=== PATIENT | male | born 1985 | race Caucasian/White ===

== ENCOUNTER 2019-01-14 19:07 | Emergency (ER) | payer MEDICAID, OTHER ==
[~2019-01-14] VITALS: Ht 185.4 cm; Wt 77.1 kg
[~2019-01-14 19:07] MED LIST: ASPI81CH43 GT; FURO40TA PO; LISI2.5T47 PO; METO25TA62 PO; SPIR25TA88 PO
[2019-01-14 19:40] LABS: Basophils # (auto) 0.1 uL; Eosinophils # (auto) 0.1 uL; Eosinophils % (auto) 0.4 % (0.0-7.0); Mean Corpuscular Volume 88.9 fL (80.0-100.0); Monocytes % (auto) 11.7 % (0.0-12.0); Nucleated Red Blood Cells % 0.1 %
[2019-01-14 19:44] LABS: Basophils % (auto) 0.9 % (0.0-2.0); Hematocrit 53.3 % (41.0-53.0); Hemoglobin 17.2 g/dL (13.5-17.5); Lymphocytes % (auto) 25.8 % (10.0-50.0); Mean Corpuscular Hemoglobin 28.7 pg (28.0-32.0); Mean Corpuscular Hgb Conc. 32.3 g/dL (32.0-36.0); Monocytes # (auto) 1.8 uL; Neutrophils # (auto) 9.5 uL; Neutrophils % (auto) 61.2 % (37.0-80.0); Platelet Count (auto) 333 10^3/uL (140-450); Red Blood Cells 5.99 10^6/uL (4.5-5.90); Red Cell Distribution Width 15.5 % (11.8-14.3); White Blood Cell 15.5 10^3/uL (4.4-10.8)
[2019-01-14 19:57] LABS: Albumin 2.3 g/dL (3.4-5.0); Calcium 8.2 mg/dL (8.5-10.1); Magnesium 2.3 mg/dL (1.6-2.6); Potassium 4.3 mmol/L (3.5-5.1)
[2019-01-14 20:05] LABS: BUN/Creatinine Ratio 20.1; Bilirubin, Total 1.2 mg/dL (0.2-1.0); Total Protein 6.7 g/dL (6.4-8.2)
[2019-01-14] MEDS ORDERED: SODIUM CHLORIDE 0.9% 1,000 ML IV ONE (21:00)
[2019-01-14] MEDS ORDERED: IPRATROPIUM BROM 0.5 MG/2.5ML INH SOL NEB ONE (21:00)
[2019-01-14] MEDS ORDERED: cefTRIAXone 1GM/50ML D5W 50 ML IV ONE (21:00)
[2019-01-14] MEDS ORDERED: ALBUTEROL SULF 2.5 MG/0.5ML(0.5%) NEB SOLN NEB ONE (21:00)
[2019-01-14 21:29] LABS: INR 1.32 (0.9-1.15); Prothrombin Time 13.9 sec (9.27-12.13)
[2019-01-15] MEDS ORDERED: FUROSEMIDE 20 MG/2 ML VIAL IV ONE (00:15)
[2019-01-15] MEDS ORDERED: ONDANSETRON HCL 4 MG/2 ML VIAL IV ONE (00:15)
[2019-01-15] MEDS ORDERED: MORPHINE SULFATE 4 MG/ML SYR/VIAL IV ONE (00:15)
[2019-01-15 05:46] VITALS: BP 103/73
== END 2019-01-15 06:09 | disposition home or self-care (01) ==
LOC: ER 19:27
DX: J18.9 Pneumonia, unspecified organism (principal); I50.23 Acute on chronic systolic (congestive) heart failure; Z79.82 Long term (current) use of aspirin; Z79.899 Other long term (current) drug therapy
CPT/HCPCS: 36415; 71046; 80053; 83605; 83735; 83880; 84443; 84484; 85025; 85610; 85730; 87040; 93005; 94640; 96365; 96366; 96375; 99284; J0696; J2270; J2405; J7030; J7611; J7644

== ENCOUNTER 2019-01-26 12:48 | Inpatient (IN) | payer MEDICAID | END 2019-01-30 18:30 | disposition home or self-care (01) | LOC: TELE-WESTW 01-29 05:10 → ER 12:48 → TELE-WESTW 01-27 17:20 → TELE 19:34 | DX: I11.0 Hypertensive heart disease with heart failure (principal); I21.4 Non-ST elevation (NSTEMI) myocardial infarction; J18.9 Pneumonia, unspecified organism; E44.0 Moderate protein-calorie malnutrition; I27.20 Pulmonary hypertension, unspecified; I42.7 Cardiomyopathy due to drug and external agent; I50.43 Acute on chronic combined systolic (congestive) and diastolic (congestive) heart failure; F15.90 Other stimulant use, unspecified, uncomplicated ==

== ENCOUNTER 2019-02-10 13:06 | Inpatient (IN) | payer MEDICAID ==
[~2019-02-10] VITALS: Ht 185.4 cm; Wt 81.9 kg
[2019-02-10] MEDS ORDERED: ASPirin 81 mg TAB PO ONE (13:30)
[2019-02-10 14:27] LABS: Basophils # (auto) 0.1 uL; Basophils % (auto) 0.9 % (0.0-2.0); Eosinophils # (auto) 0.1 uL; Eosinophils % (auto) 0.8 % (0.0-7.0); Hemoglobin 14.6 g/dL (13.5-17.5); Lymphocytes # (auto) 2.2 uL; Lymphocytes % (auto) 23.1 % (10.0-50.0); Mean Corpuscular Hemoglobin 27.4 pg (28.0-32.0); Mean Corpuscular Hgb Conc. 32.5 g/dL (32.0-36.0); Mean Corpuscular Volume 84.5 fL (80.0-100.0); Monocytes # (auto) 1.6 uL; Monocytes % (auto) 16.5 % (0.0-12.0); Neutrophils # (auto) 5.7 uL; Neutrophils % (auto) 58.7 % (37.0-80.0); Nucleated Red Blood Cells % 0.1 %; Platelet Count (auto) 279 10^3/uL (140-450); Red Blood Cells 5.33 10^6/uL (4.5-5.90); Red Cell Distribution Width 16.4 % (11.8-14.3); White Blood Cell 9.6 10^3/uL (4.4-10.8)
[2019-02-10] MEDS ORDERED: FUROSEMIDE 20 MG/2 ML VIAL IV ONE (14:45)
[2019-02-10] MEDS ORDERED: cefTRIAXone SOD 1,000 MG VL IM ONE (14:45)
[2019-02-10 15:05] LABS: Potassium 3.1 mmol/L (3.5-5.1); Sodium 132 mmol/L (136-145)
[2019-02-10 15:06] LABS: Alanine Aminotransferase 46 U/L (16-61); Alkaline Phosphatase 182 U/L (45-117); Anion Gap 10 (5-15); Aspartate Aminotransferase 36 U/L (15-37); BUN/Creatinine Ratio 12.8; Blood Urea Nitrogen 19 mg/dL (7-18); Calcium 8.3 mg/dL (8.5-10.1); Carbon Dioxide 23 mmol/L (21-32); Chloride 99 mmol/L (98-107); GFR African American 70 mL/min; GFR Non-African American 57 mL/min; Glucose 146 mg/dL (74-106)
[2019-02-10 15:07] LABS: Albumin 2.7 g/dL (3.4-5.0); Bilirubin, Total 2.2 mg/dL (0.2-1.0); Magnesium 1.8 mg/dL (1.6-2.6)
[2019-02-10] MEDS ORDERED: ENOXAPARIN SOD 100 MG/1 ML SYRINGE SC ONE ×2 (16:15→22:30)
[2019-02-10] MEDS ORDERED: FUROSEMIDE 20 MG/2 ML VIAL ONE (19:54)
[2019-02-10 19:59] LABS: Basophils # (auto) 0.1 uL; Eosinophils # (auto) 0.1 uL; Eosinophils % (auto) 0.6 % (0.0-7.0); Hematocrit 48.1 % (41.0-53.0); Hemoglobin 15.8 g/dL (13.5-17.5); Lymphocytes # (auto) 2.8 uL; Lymphocytes % (auto) 27.4 % (10.0-50.0); Mean Corpuscular Hemoglobin 27.7 pg (28.0-32.0); Mean Corpuscular Hgb Conc. 32.9 g/dL (32.0-36.0); Mean Corpuscular Volume 84.1 fL (80.0-100.0); Monocytes # (auto) 1.5 uL; Monocytes % (auto) 14.8 % (0.0-12.0); Neutrophils # (auto) 5.8 uL; Neutrophils % (auto) 56.2 % (37.0-80.0); Nucleated Red Blood Cells % 0.3 %; Platelet Count (auto) 316 10^3/uL (140-450); Red Blood Cells 5.72 10^6/uL (4.5-5.90); Red Cell Distribution Width 16.6 % (11.8-14.3); White Blood Cell 10.3 10^3/uL (4.4-10.8)
[2019-02-10 20:14] LABS: INR 1.65 (0.9-1.15); Prothrombin Time 17.2 sec (9.27-12.13)
[2019-02-10] MEDS ORDERED: IBUPROFEN 800 MG TAB PO ONE (20:15)
[2019-02-10 20:28] LABS: Albumin 2.9 g/dL (3.4-5.0); BUN/Creatinine Ratio 13.6; Bilirubin, Total 2.3 mg/dL (0.2-1.0); Total Protein 7.5 g/dL (6.4-8.2)
[2019-02-10 20:31] LABS: Partial Thromboplastin Time 27.6 sec (23.78-33.04)
[2019-02-10] MEDS ORDERED: ACETAMINOPHEN 325 MG TAB PO PRN (20:45)
[2019-02-10] MEDS ORDERED: NITROGLYCERIN 0.4 MG SL TAB SL PRN (20:45)
[2019-02-10] MEDS ORDERED: MORPHINE SULF INJ 2 MG/ML SYRINGE 1ML IV PRN (20:45)
[2019-02-10 23:11] LABS: Urine Bacteria NONE SEEN /hpf (None Seen); Urine Blood Negative /uL (Negative); Urine Hyaline Cast FEW /lpf (0 - 2); Urine Mucus FEW (None Seen); Urine Specific Gravity 1.019 (1.001-1.035); Urine WBC 5 /hpf (0 - 3)
[2019-02-10] MEDS: HYDROcodone-ACET 5/325MG TAB PO PRN (23:11)
[2019-02-10] MEDS: TEMAZEPAM 15 MG CAP PO PRN (23:11)
[2019-02-10 23:23] LABS: Alcohol, Urine < 3.0 mg/dL (0-5); Amphetamine Screen, Urine NEGATIVE (NEGATIVE); Barbiturate Scree,Urine NEGATIVE (NEGATIVE); Benzodiazephine Screen, Urine NEGATIVE (NEGATIVE); Cannabinoid Screen, Urine POSITIVE (NEGATIVE); Cocaine Screen, Urine NEGATIVE (NEGATIVE); Opiate Scree,Urine POSITIVE (NEGATIVE); Phencyclidine Screen, Urine NEGATIVE (NEGATIVE)
[2019-02-11] MEDS ORDERED: FUROSEMIDE 20 MG/2 ML VIAL IV SCH (06:00)
[2019-02-11 06:50] LABS: Basophils # (auto) 0.1 uL; Basophils % (auto) 0.8 % (0.0-2.0); Eosinophils # (auto) 0.1 uL; Eosinophils % (auto) 1.5 % (0.0-7.0); Hematocrit 44.8 % (41.0-53.0); Hemoglobin 14.6 g/dL (13.5-17.5); Lymphocytes # (auto) 3.4 uL; Lymphocytes % (auto) 37.7 % (10.0-50.0); Mean Corpuscular Hemoglobin 27.6 pg (28.0-32.0); Mean Corpuscular Hgb Conc. 32.7 g/dL (32.0-36.0); Mean Corpuscular Volume 84.5 fL (80.0-100.0); Monocytes # (auto) 1.1 uL; Monocytes % (auto) 12.8 % (0.0-12.0); Neutrophils # (auto) 4.2 uL; Neutrophils % (auto) 47.2 % (37.0-80.0); Nucleated Red Blood Cells % 0.3 %; Platelet Count (auto) 261 10^3/uL (140-450); Red Cell Distribution Width 16.4 % (11.8-14.3); White Blood Cell 8.9 10^3/uL (4.4-10.8)
[2019-02-11 07:29] LABS: Albumin 2.5 g/dL (3.4-5.0); BUN/Creatinine Ratio 15.9; Calcium 8.3 mg/dL (8.5-10.1)
[2019-02-11 07:33] LABS: Bilirubin, Total 1.5 mg/dL (0.2-1.0); Total Protein 6.5 g/dL (6.4-8.2)
[2019-02-11 07:39] LABS: Potassium 2.8 mmol/L (3.5-5.1)
[2019-02-11] MEDS ORDERED: POTASSIUM CHL 20 Meq TABLET PO ONE (07:45)
[2019-02-11] MEDS: HYDROcodone-ACET 5/325MG TAB PO PRN ×2 (08:27→22:33)
[2019-02-11] MEDS ORDERED: LEVOFLOXACIN 500MG 100 ML IV SCH (10:00)
[2019-02-11] MEDS: ASPirin 81 mg TAB PO SCH (10:37)
[2019-02-11] MEDS: PANTOPRAZOLE 40 MG TAB PO SCH (10:37)
[2019-02-11] MEDS: SPIRONOLACTONE 25 MG TAB PO SCH (10:37)
[2019-02-11] MEDS: LISINOPRIL 5 MG TAB PO SCH (11:01)
[2019-02-11] MEDS: METOPROLOL SUCCINATE XL 50 MG TAB PO SCH (11:01)
[2019-02-11 13:42] LABS: BUN/Creatinine Ratio 14.7; Calcium 8.5 mg/dL (8.5-10.1); Potassium 3.6 mmol/L (3.5-5.1)
[2019-02-11] MEDS: ONDANSETRON HCL 4 MG/2 ML VIAL IV PRN (18:35)
[2019-02-11] MEDS: MORPHINE SULF INJ 2 MG/ML SYRINGE 1ML IV PRN (18:35)
--- NOTE | 2019-02-11 21:47 | NUR ---
PATIENT ARRIVED ON UNIT VIA WHEELCHAIR. NO COMPLAINTS OF SHORTNESS OF BREATH BUT DOES HAVE SOME CHEST PAIN. HE IS AMBULATORY, ON ROOM AIR AND A0 X 4. MADE AWARE OF THE PLAN OF CARE. STATED UNDERSTANDING OF USE OF CALL LIGHT. WILL CONTINUE TO MONITOR.
[2019-02-11 21:50] VITALS: BP 135/72
[2019-02-11] MEDS: TEMAZEPAM 15 MG CAP PO PRN (22:33)
--- NOTE | 2019-02-11 23:57 | NUR ---
[facility] SWAB SENT TO LAB VIA [employer] [facility].
[2019-02-12] VITALS (9 sets, daily range): BP systolic 87–122; BP diastolic 58–84
[2019-02-12] MEDS: MORPHINE SULF INJ 2 MG/ML SYRINGE 1ML IV PRN ×3 (00:15→14:37)
[2019-02-12 06:08] LABS: Basophils # (auto) 0 uL; Basophils % (auto) 0.6 % (0.0-2.0); Eosinophils # (auto) 0.1 uL; Eosinophils % (auto) 1.3 % (0.0-7.0); Hemoglobin 14.8 g/dL (13.5-17.5); Lymphocytes # (auto) 2.9 uL; Lymphocytes % (auto) 37.4 % (10.0-50.0); Mean Corpuscular Hemoglobin 27.3 pg (28.0-32.0); Mean Corpuscular Hgb Conc. 32.3 g/dL (32.0-36.0); Mean Corpuscular Volume 84.7 fL (80.0-100.0); Monocytes % (auto) 12.5 % (0.0-12.0); Neutrophils # (auto) 3.7 uL; Neutrophils % (auto) 48.2 % (37.0-80.0); Nucleated Red Blood Cells % 0.2 %; Platelet Count (auto) 252 10^3/uL (140-450); Red Blood Cells 5.43 10^6/uL (4.5-5.90); Red Cell Distribution Width 16.3 % (11.8-14.3); White Blood Cell 7.7 10^3/uL (4.4-10.8)
[2019-02-12 06:37] LABS: Calcium 8.2 mg/dL (8.5-10.1); Phosphorus 3.6 mg/dL (2.5-4.90); Potassium 3.3 mmol/L (3.5-5.1); Uric Acid 11.7 mg/dL (3.5-7.2)
[2019-02-12 08:04] LABS: Urine WBC None Seen /hpf (0 - 3)
[2019-02-12] MEDS: ONDANSETRON HCL 4 MG/2 ML VIAL IV PRN (08:04)
--- NOTE | 2019-02-12 08:35 | NUR ---
PT SEEN BY DR. TALBERT HE SAID HE WILL DISCHARGE PT IF HE IS CLEARED WITH TELE PSYCH CONSULT, CARDIOLOGY AND NEPHROLOGY.
--- NOTE | 2019-02-12 08:36 | NUR ---
PT IS OFF FLOOR FOR VQ SCAN
[2019-02-12 08:39] LABS: Protein, Urine 51.8 mg/dL (0.0-11.9)
[2019-02-12] MEDS ORDERED: POTASSIUM CHL 10% (20 MEQ/15ML) 15ml ORAL SOLN PO ONE (08:45)
--- NOTE | 2019-02-12 09:00 | NUR ---
TELE PSYCH CONSULT CALLED, SPOKE WITH AMADOU
[2019-02-12] MEDS: PANTOPRAZOLE 40 MG TAB PO SCH (09:24)
[2019-02-12] MEDS: ASPirin 81 mg TAB PO SCH (09:25)
[2019-02-12] MEDS: METOPROLOL SUCCINATE XL 50 MG TAB PO SCH (09:26)
[2019-02-12] MEDS: LISINOPRIL 5 MG TAB PO SCH (09:27)
[2019-02-12] MEDS ORDERED: FUROSEMIDE 20 MG TAB PO SCH (10:00)
[2019-02-12] MEDS: SPIRONOLACTONE 25 MG TAB PO SCH (10:04)
--- NOTE | 2019-02-12 10:11 | NUR ---
PAGED DR. DOZIER PT HAS RECENT ECHOCARDIOGRAM, TO CONFIRM IF HE NEED ANOTHER TEST AND IF PT IS OKAY TO BE DISCHARGED.
--- NOTE | 2019-02-12 10:30 | NUR ---
PT SEEN BY DR. TALBERT VQ SCAN RESULT WAS DISCUSSED WITH THE PT, PT GIVEN 3 OPTIONS REGARDING MANAGEMENT FOR INTERMEDIATE PROBABILITY OF PE AND WAS EXPLAINED IN DETAILS THE RISK AND BENEFITS, PT CHOOSE TO HAVE CT ANGIOGRAM OF THE CHEST DONE. PT IS AWARE OF THE RISK ON HIS KIDNEY FUNCTION BUT PT IS POSITIVE TO PROCEED WITH THE TEST. WILL INFORM DR. FRAGOSO REGARDING THE PLAN FOR CTA.
[2019-02-12 12:00] LABS: Urine Amorphous Crystal MANY /hpf (None Seen); Urine Bacteria NONE SEEN /hpf (None Seen); Urine Blood Negative /uL (Negative); Urine Specific Gravity 1.022 (1.001-1.035)
[2019-02-12] MEDS: SODIUM CHLORIDE 0.9% 1,000 ML IV ONE ×2 (13:45→17:12)
--- NOTE | 2019-02-12 15:15 | NUR ---
PER DR. TALBERT PT IS OKAY TO HAVE CT ANGIOGRAM OF THE CHEST.
--- NOTE | 2019-02-12 15:50 | NUR ---
TELE PSYCH CONSULT DONE REPORT ATTACH TO CHART.
[2019-02-12] MEDS ORDERED: IOHEXOL 350 MG/ML 100ML IJ ONE (16:20)
--- NOTE | 2019-02-12 17:15 | NUR ---
PT REFUSED IV FLUID. PT MADE AWARE HE NEEDS IT DUE TO THE CONTRAST WITH CTA BUT PT STILL REFUSED.
--- NOTE | 2019-02-12 17:38 | NUR ---
DR. TALBERT MADE AWARE REPORT OF TELE PSYCH CONSULT IS ATTACHED TO CHART AND PT IS REFUSING THE SALINE IV ORDERED BY DR. FRAGOSO.WAITING FOR CALL BACK. Addendum: 02/12/19 at 1805 by Manuela Ash RN DR. TALBERT ORDERED TO PUT AN ORDER FOR THE ZOLOFT 50 MG BID AND GABAPENTIN 300MG BID RECOMMENDED BY PSYCHIATRIST, ORDER READ BACK AND VERIFIED.
--- NOTE | 2019-02-12 18:15 | NUR ---
PT EDUCATED ON THE IMPORTANCE OF GIVING HIM THE IV FLUID AFTER CT ANGIOGRAM, TO FLUSH THE CONTRAST TO PREVENT DAMAGE IN HIS KIDNEY BUT PT STILL REFUSED IT. PT WILL NOT TAKE THE IV FLUID.
--- NOTE | 2019-02-12 18:44 | NUR ---
MARCY OF [facility] CALLED, SHE SAID IF THEY WILL TAKE THE PT AND PT IS NOT STABLE THEY WILL SEND THE PT BACK. Addendum: 02/12/19 at 1847 by Manuela Ash RN DR. KELLEE LOZA AWARE. Addendum: 02/12/19 at 1943 by Manuela Ash RN wrong note
--- NOTE | 2019-02-12 19:20 | NUR ---
CARE ENDORSED TO KASSY DAI
--- NOTE | 2019-02-12 20:00 | NUR ---
Opening Shift Note Assumed care of patient, awake and alert. No S/S of distress/SOB or pain. Instructed on POC and to call for assist PRN, will continue to monitor for changes Q1hr and PRN.
--- NOTE | 2019-02-12 20:47 | NUR ---
Called/paged Dr. Osei called re:blood pressure of 89/62.p-90,,8758 . Waiting for call back. Continue care.
--- NOTE | 2019-02-12 20:51 | NUR ---
returned call Dr. Dai returned call, updated on patient status and reason for call,blood pressure of 89/62,87/68 no orders received. Continue care.The map is 68, no new order as the doctor said.
[2019-02-12] MEDS: GABAPENTIN 300 MG CAP PO SCH (21:13)
[2019-02-12] MEDS: TEMAZEPAM 15 MG CAP PO PRN (21:38)
--- NOTE | 2019-02-12 22:30 | NUR ---
Charge nurse and primary nurse signed for the AMA paper for refused to used the tele box and wants to go out against medical advise due to patient does not want to sign.
--- NOTE | 2019-02-12 22:35 | NUR ---
Patient said he want to go out against medical advise, due we cant give his pain med, the blood pressure is low 89/62, 87/58, 105/75, informed charge nurse, but patient does not like to sign for Against medical paper, does not want to touch his arm to remove his i.v.line.
[2019-02-13] MEDS: MORPHINE SULF INJ 2 MG/ML SYRINGE 1ML IV PRN ×3 (03:03→20:56)
[2019-02-13 05:00] VITALS: BP 109/71
[2019-02-13 05:44] LABS: Basophils # (auto) 0.1 uL; Basophils % (auto) 0.7 % (0.0-2.0); Eosinophils # (auto) 0.1 uL; Eosinophils % (auto) 1.1 % (0.0-7.0); Hematocrit 49.2 % (41.0-53.0); Hemoglobin 16.1 g/dL (13.5-17.5); Lymphocytes # (auto) 2.8 uL; Lymphocytes % (auto) 27.5 % (10.0-50.0); Mean Corpuscular Hemoglobin 27.8 pg (28.0-32.0); Mean Corpuscular Hgb Conc. 32.7 g/dL (32.0-36.0); Monocytes # (auto) 1.1 uL; Monocytes % (auto) 10.4 % (0.0-12.0); Neutrophils # (auto) 6.1 uL; Neutrophils % (auto) 60.3 % (37.0-80.0); Nucleated Red Blood Cells % 0.1 %; Platelet Count (auto) 290 10^3/uL (140-450); Red Blood Cells 5.78 10^6/uL (4.5-5.90); Red Cell Distribution Width 16.5 % (11.8-14.3); White Blood Cell 10.2 10^3/uL (4.4-10.8)
[2019-02-13 06:04] LABS: BUN/Creatinine Ratio 17.1; Calcium 8.4 mg/dL (8.5-10.1); Potassium 4.2 mmol/L (3.5-5.1)
--- NOTE | 2019-02-13 07:19 | NUR ---
Report given to Arlin Roy to assume care .
[2019-02-13 08:00] VITALS: BP 118/72
[2019-02-13] MEDS ORDERED: ERGOCALCIFEROL 50,000 UNIT(1.25MG) CAP PO SCH (09:00)
[2019-02-13] MEDS ORDERED: FUROSEMIDE 20 MG TAB PO SCH (10:00)
[2019-02-13] MEDS: SERTRALINE HCL 50 MG TAB PO SCH (10:20)
[2019-02-13] MEDS: ASPirin 81 mg TAB PO SCH (10:33)
[2019-02-13] MEDS: PANTOPRAZOLE 40 MG TAB PO SCH (10:34)
[2019-02-13] MEDS: GABAPENTIN 300 MG CAP PO SCH ×2 (10:34→21:36)
[2019-02-13] MEDS: METOPROLOL SUCCINATE XL 50 MG TAB PO SCH (10:34)
[2019-02-13] MEDS ORDERED: FUR20T PO (10:56)
[2019-02-13] MEDS ORDERED: SERT-138 PO (10:56)
[2019-02-13] MEDS ORDERED: GABA300C10 PO (10:56)
[2019-02-13] MEDS ORDERED: ERGO1CAP23 PO (10:56)
[2019-02-13 12:00] VITALS: BP 97/58
[2019-02-13] MEDS: ONDANSETRON HCL 4 MG/2 ML VIAL IV PRN ×2 (12:12→17:33)
--- NOTE | 2019-02-13 12:27 | NUR ---
ORDER FOR [facility] MANAGEMENT FAXED TO [facility]
--- NOTE | 2019-02-13 12:29 | NUR ---
VERO FRAGOSO FOR DISCHARGE CLEARANCE, SPOKE TO CAITLYN IN HIS OFFICE.
--- NOTE | 2019-02-13 12:37 | NUR ---
PAGED DR. DOZIER FOR CARDIOLOGY CLEARANCE, WAITING FOR CALL BACK.
--- NOTE | 2019-02-13 12:48 | NUR ---
DR. DOZIER CALLED, HE SAID PT IS CLEARED FOR DISCHARGE.
--- NOTE | 2019-02-13 14:20 | NUR ---
DR. FRAGOSO CALLED, MADE AWARE PT HAS NO URINE OUTPUT SINCE 8AM, PER DR. FRAGOSO HE WILL KEEP THE PT 1 MORE DAY.
--- NOTE | 2019-02-13 16:25 | NUR ---
DR. TALBERT MADE AWARE PT IS STILL HAVING CHEST PAIN, BP 89/71MMHG, HR 94 , O2 SAT 97%, PT HAS NO URINE OUTPUT SINCE 8AM, BLADDER SCAN SHOWED 259MLS, BLADDER IS NOT DISTENDED.
--- NOTE | 2019-02-13 16:29 | NUR ---
DR. TALBERT CALLED, HE ORDERED TO HOLD THE DISCHARGE AND CALL DR. FRAGOSO FOR ANY ORDERS.
--- NOTE | 2019-02-13 16:40 | NUR ---
PAGED ASSOCIATE OF SCIENCE IN NURSING NEPHROLOGY PT HAS NO URINE OUTPUT SINCE 8 AM, WAITING FOR CALL BACK.
[2019-02-13] MEDS ORDERED: SODIUM CHLORIDE 0.9% 500 ML IV ONE (16:45)
--- NOTE | 2019-02-13 16:45 | NUR ---
PT URINATED 250 ML DARK SRIDEVI COLOR URINE
[2019-02-13 16:52] VITALS: BP 88/67
[2019-02-13 18:24] LABS: BUN/Creatinine Ratio 15.9; Calcium 8.4 mg/dL (8.5-10.1); Potassium 4.1 mmol/L (3.5-5.1)
--- NOTE | 2019-02-13 19:54 | NUR ---
Opening Shift Note Assumed care of patient, awake and alert. No S/S of distress/SOB or pain. Instructed on POC and to call for assist PRN, will continue to monitor for changes Q1hr and PRN.Patient said that he urinated about 400 cc urine in his urinal.
[2019-02-13 20:00] VITALS: BP 112/92
[2019-02-13] MEDS: TEMAZEPAM 15 MG CAP PO PRN (21:36)
[2019-02-13 22:00] VITALS: BP 139/101
[2019-02-14 05:23] VITALS: BP 101/69
[2019-02-14 06:12] LABS: BUN/Creatinine Ratio 17.9; Calcium 8.7 mg/dL (8.5-10.1); Potassium 4.6 mmol/L (3.5-5.1)
[2019-02-14] MEDS: MORPHINE SULF INJ 2 MG/ML SYRINGE 1ML IV PRN ×3 (06:20→18:34)
--- NOTE | 2019-02-14 07:18 | NUR ---
Report given to Arlin Roy to assume care, no distress.
--- NOTE | 2019-02-14 07:49 | NUR ---
DR. TALBERT CALLED, ORDERED BOLUS OF NS 500ML.
[2019-02-14] MEDS ORDERED: SODIUM CHLORIDE 0.9% 500 ML IV ONE (08:00)
[2019-02-14 09:00] VITALS: BP 100/53
[2019-02-14] MEDS: GABAPENTIN 300 MG CAP PO SCH ×2 (09:30→21:41)
[2019-02-14] MEDS: ASPirin 81 mg TAB PO SCH (09:30)
[2019-02-14] MEDS: PANTOPRAZOLE 40 MG TAB PO SCH (09:30)
[2019-02-14] MEDS: SERTRALINE HCL 50 MG TAB PO SCH (09:30)
--- NOTE | 2019-02-14 10:00 | NUR ---
MEDICATION HELD LASIX AND METOPROLOL HELD, BP IS LOW 88/71MMHG, WILL MONITOR BP AND GIVE THE MEDICATION IF BP IS OKAY.
[2019-02-14] MEDS ORDERED: FUROSEMIDE 20 MG TAB PO ONE (11:30)
[2019-02-14] MEDS: METOPROLOL SUCCINATE XL 50 MG TAB PO SCH (12:30)
--- NOTE | 2019-02-14 12:32 | NUR ---
Nutrition Assessment Notes please see attached link for complete assessment Est. Needs based on BW: (81 kg): 5265-5705 kcal (25-30 kcal/kgBW), 65-81 gms pro (0.8-1.0 gm/kgBW r/t elev RFT). Will continue to monitor pertinent labs and reassess nutrient need prn Addendum: 02/14/19 at [address] Amended: Links added.
[2019-02-14 13:00] VITALS: BP 155/83
[2019-02-14] MEDS: ONDANSETRON HCL 4 MG/2 ML VIAL IV PRN (16:17)
--- NOTE | 2019-02-14 16:20 | NUR ---
NAUSEA PT IS COMPLAINING OF NAUSEA, MEDICATION GIVEN ORDERED
[2019-02-14 17:00] VITALS: BP 80/61
[2019-02-14 18:15] VITALS: BP 128/84
[2019-02-14] MEDS: TEMAZEPAM 15 MG CAP PO PRN (21:50)
[2019-02-14 21:51] VITALS: BP 117/70
[2019-02-15] MEDS: MORPHINE SULF INJ 2 MG/ML SYRINGE 1ML IV PRN ×4 (00:55→21:09)
[2019-02-15] MEDS: ONDANSETRON HCL 4 MG/2 ML VIAL IV PRN ×2 (00:56→12:08)
[2019-02-15 05:05] VITALS: BP 137/74
[2019-02-15 06:40] LABS: Eosinophils # (auto) 0 uL; Hemoglobin 16.4 g/dL (13.5-17.5); Nucleated Red Blood Cells % 0.4 %
[2019-02-15 06:42] LABS: Basophils # (auto) 0.1 uL; Basophils % (auto) 0.5 % (0.0-2.0); Eosinophils % (auto) 0.4 % (0.0-7.0); Hematocrit 50.5 % (41.0-53.0); Lymphocytes # (auto) 3.7 uL; Lymphocytes % (auto) 34.6 % (10.0-50.0); Mean Corpuscular Hemoglobin 27.7 pg (28.0-32.0); Mean Corpuscular Hgb Conc. 32.6 g/dL (32.0-36.0); Monocytes # (auto) 1.7 uL; Monocytes % (auto) 15.8 % (0.0-12.0); Neutrophils # (auto) 5.3 uL; Neutrophils % (auto) 48.7 % (37.0-80.0); Platelet Count (auto) 257 10^3/uL (140-450); Red Blood Cells 5.94 10^6/uL (4.5-5.90); Red Cell Distribution Width 16.7 % (11.8-14.3); White Blood Cell 10.8 10^3/uL (4.4-10.8)
[2019-02-15 06:51] LABS: Albumin 2.5 g/dL (3.4-5.0); Calcium 8.5 mg/dL (8.5-10.1); Magnesium 2.1 mg/dL (1.6-2.6); Potassium 4.3 mmol/L (3.5-5.1)
[2019-02-15 06:54] LABS: BUN/Creatinine Ratio 16.6; Bilirubin, Total 2.2 mg/dL (0.2-1.0); Phosphorus 4.2 mg/dL (2.5-4.90); Total Protein 6.6 g/dL (6.4-8.2)
--- NOTE | 2019-02-15 07:30 | NUR ---
Opening Shift Note Assumed care of patient, awake and alert. No S/S of distress/SOB. Patient complains of sharp pain 8/10 in chest. Unchanged from previous days. Instructed on POC and to call for assist PRN, will continue to monitor. Bed locked in the lowest position. Bed rails up x2. Call light in reach.
[2019-02-15 09:00] VITALS: BP 117/75
[2019-02-15] MEDS: ASPirin 81 mg TAB PO SCH (09:55)
[2019-02-15] MEDS: PANTOPRAZOLE 40 MG TAB PO SCH (09:55)
[2019-02-15] MEDS: SERTRALINE HCL 50 MG TAB PO SCH (09:55)
[2019-02-15] MEDS: GABAPENTIN 300 MG CAP PO SCH ×2 (09:56→21:09)
[2019-02-15] MEDS: METOPROLOL SUCCINATE XL 50 MG TAB PO SCH (09:57)
[2019-02-15] MEDS ORDERED: FUROSEMIDE 20 MG TAB PO SCH (10:00)
[2019-02-15] MEDS ORDERED: MORPHINE SULF INJ 2 MG/ML SYRINGE 1ML IV PRN (11:15)
[2019-02-15] MEDS ORDERED: FUROSEMIDE 100 MG/10ML VIAL IV ONE (11:15)
[2019-02-15] MEDS ORDERED: GASTROGRAFIN 30 ML SOL ONE (11:52)
[2019-02-15] MEDS ORDERED: PANTOPRAZOLE 40 MG TAB PO SCH (12:00)
--- NOTE | 2019-02-15 12:00 | NUR ---
NPO PER CARMEN VINCENT TO GIVE PO MEDICATIONS WITH SMALL SIP OF WATER.
[2019-02-15] MEDS: HYDROcodone-ACET 5/325MG TAB PO PRN ×2 (12:08→18:27)
[2019-02-15 13:00] VITALS: BP 135/81
--- NOTE | 2019-02-15 13:25 | NUR ---
MD AWARE PATIENT C/O PAIN 09/03 TO ABDOMEN. UNCHANGED AFTER [facility]CO ADMINISTRATION. NOTIFIED DR. HODGES. NEW MEDICATION ORDER RECEIVED. ORDER READ BACK AND VERIFIED.
[2019-02-15 17:00] VITALS: BP 102/77
--- NOTE | 2019-02-15 19:00 | NUR ---
CLOSING NOTE Patient is awake and alert. No S/S of distress/SOB or pain. Bed locked in the lowest position, bed rails up x2. Call light in reach. Endorsed care to night nurse.
[2019-02-15 19:10] LABS: Albumin 2.9 g/dL (3.4-5.0); Bilirubin, Direct 1.8 mg/dL (0-0.2); Calcium 8.8 mg/dL (8.5-10.1); Potassium 3.8 mmol/L (3.5-5.1)
[2019-02-15 19:13] LABS: BUN/Creatinine Ratio 17.2; Bilirubin, Total 3.1 mg/dL (0.2-1.0); Total Protein 7.3 g/dL (6.4-8.2)
[2019-02-15] MEDS: PANTOPRAZOLE 40 MG/10 ML VIAL IV SCH (21:09)
[2019-02-15] MEDS: TEMAZEPAM 15 MG CAP PO PRN (21:12)
[2019-02-15 22:12] VITALS: BP 139/72
[2019-02-16] MEDS: MORPHINE SULF INJ 2 MG/ML SYRINGE 1ML IV PRN ×2 (04:54→16:34)
[2019-02-16 05:03] VITALS: BP 115/76
[2019-02-16 07:24] LABS: Basophils # (auto) 0.1 uL; Basophils % (auto) 0.6 % (0.0-2.0); Eosinophils # (auto) 0.1 uL; Eosinophils % (auto) 0.8 % (0.0-7.0); Hemoglobin 14.9 g/dL (13.5-17.5); Lymphocytes # (auto) 3.5 uL; Lymphocytes % (auto) 36.1 % (10.0-50.0); Mean Corpuscular Hemoglobin 27.7 pg (28.0-32.0); Mean Corpuscular Hgb Conc. 33.2 g/dL (32.0-36.0); Mean Corpuscular Volume 83.5 fL (80.0-100.0); Monocytes # (auto) 1.3 uL; Monocytes % (auto) 13.5 % (0.0-12.0); Neutrophils # (auto) 4.7 uL; Nucleated Red Blood Cells % 0.3 %; Platelet Count (auto) 209 10^3/uL (140-450); Red Blood Cells 5.38 10^6/uL (4.5-5.90); Red Cell Distribution Width 16.5 % (11.8-14.3); White Blood Cell 9.7 10^3/uL (4.4-10.8)
[2019-02-16 07:33] LABS: Potassium 3.7 mmol/L (3.5-5.1)
[2019-02-16 07:38] LABS: Albumin 2.4 g/dL (3.4-5.0); BUN/Creatinine Ratio 16.4; Bilirubin, Total 2.3 mg/dL (0.2-1.0); Calcium 8.1 mg/dL (8.5-10.1)
--- NOTE | 2019-02-16 07:40 | NUR ---
opening patient in bed asleep, bed in lowest position, call light within reach. No distress noted at this time. Today pending an EGD with DR Bautista today patient has been npo consents signed and witnessed, checklist incomplete will complete at this time. will continue to monitor and f/u with morning assessment
--- NOTE | 2019-02-16 08:56 | NUR ---
nurse note current wbc 9.7 rbc 5.38 hgb 14.9 sodium 130 bun 28 crea 1.71 ast 326 alt 254 hepatitis panel is pending gallbladder US completed abd pelvis ct completed
--- NOTE | 2019-02-16 09:00 | NUR ---
CALLING [facility] TO GET AN ESTIMATED TIME OF SERVICE FOR THE PATIENTS EGD, IT WAS STILL PENDING PER THE [facility] NURSE AND SHE WOULD CALL BACK TO LET ME KNOW.
[2019-02-16 09:32] VITALS: BP 109/71
[2019-02-16] MEDS: ASPirin 81 mg TAB PO SCH (09:34)
[2019-02-16] MEDS: GABAPENTIN 300 MG CAP PO SCH ×2 (09:34→10:00)
[2019-02-16] MEDS: PANTOPRAZOLE 40 MG/10 ML VIAL IV SCH (09:34)
[2019-02-16] MEDS ORDERED: FUROSEMIDE 100 MG/10ML VIAL IV SCH (10:00)
[2019-02-16] MEDS: METOPROLOL SUCCINATE XL 50 MG TAB PO SCH (10:00)
[2019-02-16] MEDS: SERTRALINE HCL 50 MG TAB PO SCH (10:00)
[2019-02-16 12:37] VITALS: BP 110/76
[2019-02-16] MEDS ORDERED: fentaNYL CITRATE 100 MCG/2 ML VL ONE (12:41)
[2019-02-16] MEDS ORDERED: MIDAZOLAM HCL 1MG/1ML-2 ML VIAL ONE (12:42)
[2019-02-16] MEDS ORDERED: PROPOFOL 10 MG/ML 20 ML IV ONE (12:44)
[2019-02-16] MEDS ORDERED: MIDAZOLAM HCL 1MG/1ML-2 ML VIAL IV PRN (12:45)
[2019-02-16] MEDS ORDERED: MORPHINE SULFATE 4 MG/ML SYR/VIAL IV PRN (12:45)
[2019-02-16] MEDS ORDERED: KETOROLAC TROMETH 30 MG/ML 1ML VIAL IV ONE (12:45)
[2019-02-16] MEDS ORDERED: LABETALOL HCL 5 MG/ML 4ML SYRINGE IV PRN (12:45)
[2019-02-16] MEDS ORDERED: ONDANSETRON HCL 4 MG/2 ML VIAL IV ONE (12:45)
[2019-02-16] MEDS ORDERED: ePHEDrine SULFATE 50 MG/ML AMP IV PRN (12:45)
[2019-02-16 13:12] LABS: Hepatitis B Surface Antigen Negative (Negative); Hepatitis C Antibody Negative (Negative)
[2019-02-16 13:13] LABS: Hepatitis A Ab IgM Negative; Hepatitis B Core IgM Negative
--- NOTE | 2019-02-16 13:21 | NUR ---
jean-claude jo awaiting clearance to discharge from md sima brand md awaiting call back
[2019-02-16] MEDS ORDERED: PANT40T PO (13:56)
[2019-02-16] MEDS ORDERED: FURO40TA PO (13:56)
[2019-02-16 16:13] VITALS: BP 104/71
--- NOTE | 2019-02-16 16:22 | NUR ---
paging director of casework department to verify of any changes with the [facility] set up
--- NOTE | 2019-02-16 16:24 | NUR ---
diony boykin she noted no call backs yet, but she will call and check on status and call me back
--- NOTE | 2019-02-16 16:26 | NUR ---
diony boykin called to let me know this program with [facility] is done as outpatient
--- NOTE | 2019-02-16 17:30 | NUR ---
CLOSING Discharge instructions given as ordered. Encourage to follow up with PMD as instructed. All questions and concerns addressed. Patient verbalized understanding. Medication reconciliation form completed and copy given to patient. IV removed with catheter intact, pressure dressing applied. Telemetry unit returned to ICU. Patient taken to vehicle via wheelchair with all personal belongings, accompanied by staff and family member. No distress noted at time of departure.
== END 2019-02-16 17:30 | disposition home health service (06) | DRG 194 ==
LOC: ER 13:06 → TELE 20:47 → TELE-WESTW 02-11 21:47
PROVIDERS: ADMIT Nurse Practitioner; ATTEND Internal Medicine
PROC: 0DJ08ZZ Inspection of Upper Intestinal Tract, Via Natural or Artificial Opening Endoscopic (ICD-10-PCS; principal; 2019-02-16 12:36)
DX: I13.0 Hypertensive heart and chronic kidney disease with heart failure and stage 1 through stage 4 chronic kidney disease, or unspecified chronic kidney disease (principal); N17.0 Acute kidney failure with tubular necrosis; J18.9 Pneumonia, unspecified organism; I27.20 Pulmonary hypertension, unspecified; E87.1 Hypo-osmolality and hyponatremia; E44.1 Mild protein-calorie malnutrition; K75.9 Inflammatory liver disease, unspecified; I50.23 Acute on chronic systolic (congestive) heart failure; E87.6 Hypokalemia; T50.8X5A Adverse effect of diagnostic agents, initial encounter; R10.13 Epigastric pain; Z68.23 Body mass index [BMI] 23.0-23.9, adult; E55.9 Vitamin D deficiency, unspecified; F15.90 Other stimulant use, unspecified, uncomplicated; F32.9 Major depressive disorder, single episode, unspecified; F41.9 Anxiety disorder, unspecified; G40.909 Epilepsy, unspecified, not intractable, without status epilepticus; G47.00 Insomnia, unspecified; K29.70 Gastritis, unspecified, without bleeding; Z91.19 Patient's noncompliance with other medical treatment and regimen; Z87.891 Personal history of nicotine dependence; N14.1 Nephropathy induced by other drugs, medicaments and biological substances; Z79.82 Long term (current) use of aspirin; Z79.899 Other long term (current) drug therapy; K31.84 Gastroparesis; R07.89 Other chest pain
CPT/HCPCS: 36415; 71046; 71275; 74176; 76705; 76775; 78582; 80048; 80053; 80074; 80076; 80307; 81001; 82306; 82550; 82570; 83735; 83880; 84100; 84156; 84300; 84443; 84484; 84550; 85025; 85379; 85610; 85730; 86850; 86900; 86901; 87081; 93005; 93306; 96372; 96374; C9113; G0378; J0696; J1956; J2250; J2405; J2704